=== PATIENT | male | born 1955 | race Two or more races ===

== ENCOUNTER 2016-12-02 07:33 | Day surgery (SDC) | payer BC ==
[~2016-12-02 07:33] MED LIST: Acetaminophen TAB* 325 MG PO PRN; Buffered Lidocaine 1% SYR 3ML* 3 ML/SYR SYRINGE INTRADERM ONE; Cyclopentolate 1% OPTH.SOL* 2 ML BTL ONE; Flurbiprofen 0.03% OPTH.SOL* 2.5 ML BTL ONE; Lidocaine 1% MPF* 2 ML VIAL ONE; Neomycin/Polymy/Dex OPHTH.OIN* 3.5 GM ONE; Phenylephrine 2.5% OPTH.SOL* 2 ML BTL ONE; Povidone Iodine 5% OPTH* 30 ML BTL ONE; Tetracaine 0.5% OPTH.SOL 4 ML* 1 DROP BTL ONE; acetaZOLAMIDE TAB* 250 MG ONE
[2016-12-02] MEDS ORDERED: Midazolam* 1 MG/ML 2 ML VIAL (2 MG) ONE (08:28)
[2016-12-02] MEDS ORDERED: fentaNYL* 50 MCG/ML 2 ML VIAL (100 MCG VIAL) ONE (08:28)
[2016-12-02 10:12] VITALS: BP 102/68
--- NOTE | 2016-12-02 20:16 | OP ---
DATE OF OPERATION: 12/02/16 - [facility] DATE OF : 57 SURGEON: Toan Lee MD. ANESTHESIOLOGIST: Deuce Hill MD ANESTHESIA: Monitored anesthesia care. PRE-OP DIAGNOSIS: Cataract of the right eye. POST-OP DIAGNOSIS: Cataract of the right eye. OPERATIVE PROCEDURE: Cataract surgery of the right eye. IMPLANTS: SN60WF 20.5 diopter lens to the right eye. COMPLICATIONS: None. DESCRIPTION OF PROCEDURE: The patient was given phenylephrine 2.5% and cyclopentolate 1% eye drops to the operative eye in the preoperative area. The patient was brought to the operating room, where a time-out was taken to identify the correct patient, site and side of the surgery. The patient's right eye was prepped and draped in the usual sterile fashion with 5% Betadine. A second time- out was taken to verify the correct patient, site and side of surgery and correct lens selection. A lid speculum was placed to the right eye. A 1-mm paracentesis blade was used to make a clear corneal incision in the superotemporal position. Preservative-free 1% lidocaine was injected into the anterior chamber. DuoVisc was then injected into the anterior chamber. A 2.75-mm keratome blade was used to make a triplanar incision at the inferotemporal position. A cystotome was used to initiate a capsulorrhexis, which was completed with Utrata forceps in a continuous and curvilinear manner. Hydrodissection of the lens was then performed with BSS on a cannula. The lens could be spun in the capsular bag. The phacoemulsification handpiece was then used with a lshbbg-xbu-ndligid technique to remove the nucleus in its entirety with 6.03 CDE. The I/A handpiece was then used to remove the residual cortical lens material. DuoVisc was then injected to inflate the capsular bag. The planned SN60WF 20.5 diopter lens was then injected into the capsular bag. The residual DuoVisc was then removed from the eye with the I/A handpiece. The corneal incisions were then hydrated and no leaks occurred at physiologic pressure around 20 mmHg per palpation. The lid speculum was then removed and drapes removed. Maxitrol ointment was then placed to the surface of the operative eye. An adhesive patch and shield were then placed on the operative eye. The patient was taken to the postoperative area in stable condition. [id number]/[facility] #: [id number] RUBEN
== END 2016-12-02 10:23 | disposition home or self-care (01) ==
LOC: OREAST 07:33
PROVIDERS: ATTEND Student in an Organized Health Care Education/Training Program
DX: H25.11 Age-related nuclear cataract, right eye (principal); H43.813 Vitreous degeneration, bilateral
CPT/HCPCS: A9270-GY; J2250; J3010; V2632

== ENCOUNTER → 2016-12-09 07:07 | Day surgery (SDC) | payer BC ==
[~2016-12-09 07:07] MED LIST changes: -Cyclopentolate 1% OPTH.SOL* 2 ML BTL ONE; -Flurbiprofen 0.03% OPTH.SOL* 2.5 ML BTL ONE; -Lidocaine 1% MPF* 2 ML VIAL ONE; +Midazolam* 1 MG/ML 2 ML VIAL (2 MG) ONE; -Neomycin/Polymy/Dex OPHTH.OIN* 3.5 GM ONE; -Phenylephrine 2.5% OPTH.SOL* 2 ML BTL ONE; -Povidone Iodine 5% OPTH* 30 ML BTL ONE; -Tetracaine 0.5% OPTH.SOL 4 ML* 1 DROP BTL ONE; -acetaZOLAMIDE TAB* 250 MG ONE; +fentaNYL* 50 MCG/ML 2 ML VIAL (100 MCG VIAL) ONE
[2016-12-09 09:15] VITALS: BP 102/63
--- NOTE | 2016-12-10 01:01 | OP ---
DATE OF OPERATION: 12/09/16 - [facility] DATE OF : 57 SURGEON: Toan Lee MD. ANESTHESIOLOGIST: Deuce Hill MD ANESTHESIA: Monitored anesthesia care. PRE-OP DIAGNOSIS: Cataract of the left eye. POST-OP DIAGNOSIS: Cataract of the left eye. PROCEDURE PERFORMED: Cataract extraction of the left eye. IMPLANTS: AU00T0 20.5 diopter lens to the left eye. COMPLICATIONS: None. DESCRIPTION OF PROCEDURE: The patient was given phenylephrine 2.5% and cyclopentolate 1% eye drops to the operative eye in the preoperative area. The patient was brought to the operative room, where a time-out was taken to identify the correct patient, site and side of the surgery. The patient's left eye was prepped and draped in the usual sterile fashion with 5% Betadine. A second time-out was taken to verify the correct patient, site and side of the surgery and correct lens selection. A lid speculum was placed to the left eye. A 1- mm paracentesis blade was used to make a clear corneal incision in the inferotemporal position. Preservative-free 1% lidocaine was injected into the anterior chamber. DuoVisc was then injected into the anterior chamber. A 2.75 mm keratome blade was used to make a triplanar incision at the superotemporal position. A cystotome was used to initiate a capsulorrhexis, which was completed with Utrata forceps in a continuous and curvilinear manner. Hydrodissection of the lens was then performed with BSS on a cannula. The lens could be spun in the capsular bag. The phacoemulsification handpiece was then used with a divide and conquer technique to remove the nucleus in its entirety with 6.24 CDE. The I/A handpiece then used to remove the residual cortical lens material. DuoVisc was then injected to inflate the capsular bag. The planned AU00T0 20.5 diopter lens was then injected into the capsular bag. The residual DuoVisc was then removed from the eye with the I/A hand-piece. The corneal incisions were then hydrated and no leaks occurred at physiologic pressure around 20 mmHg per palpation. The lid speculum was then removed and drapes removed. Maxitrol ointment was then placed into the surface of the operative eye. An adhesive patch and shield were then placed on the operative eye. The patient was taken to the postoperative area in stable condition. [id number]/[facility] #: [id number] MTDD
== END | disposition home or self-care (01) ==
LOC: OREAST 07:07
PROVIDERS: ATTEND Student in an Organized Health Care Education/Training Program
DX: H25.12 Age-related nuclear cataract, left eye (principal); H43.813 Vitreous degeneration, bilateral; J45.909 Unspecified asthma, uncomplicated
CPT/HCPCS: J2250; J3010; V2632

== ENCOUNTER 2017-12-30 19:42 | Emergency (ER) | payer BC ==
[2017-12-30] MEDS ORDERED: Meclizine TAB* 12.5 MG PO ONE (20:34)
[2017-12-30 21:01] LABS: ABS Basophils 0 10^3/ul (0-0.2); ABS Eosinophils 0.3 10^3/ul (0-0.6); ABS Lymphocytes 1.4 10^3/ul (1.0-4.8); ABS Monocytes 0.6 10^3/ul (0-0.8); ABS Neutrophils 4.9 10^3/ul (1.5-7.7); ABS Nucleated RBC 0 10^3/ul; Hematocrit 46 % (42-52); Hemoglobin 15.5 g/dl (14.0-18.0); Lymphocyte % 19.4 % (25-47); Mean Corpuscular HGB Conc 34 g/dl (31-36); Mean Corpuscular Hemoglobin 30 pg (27-31); Mean Corpuscular Volume 89 fL (80-94); Mean Platelet Volume 8 um3 (7.4-10.4); Nucleated Red Blood Cells % 0; Platelet Count 248 10^3/ul (150-450); Red Blood Count 5.15 10^6/ul (4.0-5.4); Red Cell Distribution Width 13 % (10.5-15); White Blood Count 7.3 10^3/ul (3.5-10.8)
--- NOTE | 2017-12-30 21:08 | RAD ---
HISTORY: Dizziness COMPARISONS: None TECHNIQUE: Multiple contiguous axial CT scans were obtained of the head without intravenous contrast. FINDINGS: HEMORRHAGE/INFARCT: There is no hemorrhage or acute infarct. MASSES/SHIFT: There is no mass or shift. EXTRA-AXIAL SPACES: There are no extra-axial fluid collections. SULCI AND VENTRICLES: The sulci and ventricles are normal in size and position for the patient's stated age. CEREBRUM: There are no focal parenchymal abnormalities. BRAINSTEM: There are no focal parenchymal abnormalities. CEREBELLUM: There are no focal parenchymal abnormalities. VESSELS: The vessels are grossly normal. PARANASAL SINUSES: The paranasal sinuses are clear. ORBITS: The orbits are unremarkable. BONES AND SOFT TISSUE: No bone or soft tissue abnormalities are noted. OTHER: None IMPRESSION: NO ACUTE INTRACRANIAL PATHOLOGY.
[2017-12-30 21:10] LABS: INR 0.98 (0.77-1.02)
[2017-12-30 21:20] LABS: EGFR Non-African American 107.5 (>60)
--- NOTE | 2017-12-30 22:31 | ED ---
Eddie Denis Thomas, scribed for Alize Madsen MD on 12/30/17 at 2036 . Complex/Multi-Sys Presentation - HPI Summary HPI Summary: The patient is a 62 year old male complaining of chest pain and dizziness that began earlier today when he was at work. The patient decided to return home from work, but the chest pain and dizziness continued. The patient took an antianxiety pill prior to arrival in an attempt to relieve the pain, but this did not relieve the pain. The patient reports that for the last month, he has had episodes of chest pain and dizziness that are short in duration. He does not feel dizzy in the emergency department. The patient denies feeling feverish. He recently had an outpatient stress test, and there are concerns that the patient did not follow up. - History Of Current Complaint Chief Complaint: EDChestPainROMI Time Seen by Provider: 12/30/17 19:54 Hx Obtained From: Patient Onset/Duration: Lasting Hours, Still Present Timing: Constant Severity Currently: Moderate Severity Initially: Moderate Location: Pain At: - chest Alleviating Factor(s): None (antianxiety pill did not relieve) Associated Signs And Symptoms: Positive: Other - CP, dizziness; NEGATIVE: feverish - Allergies/Home Medications Allergies/Adverse Reactions: Allergies Allergy/AdvReac Type Severity Reaction Status Date / Time No Known Allergies Allergy Verified 12/09/16 07:18 Home Medications: Home Medications Aspirin EC Low Dose* [Ecotrin EC Low Dose 81 MG*] 81 mg PO DAILY 12/30/17 [ History Confirmed 12/30/17] Magnesium [Magnesium Elemental] 30 mg PO EVERY OTHER DAY 12/30/17 [History Confirmed 12/30/17] Metoprolol Tartrate TAB* [Lopressor TAB*] 12.5 mg PO BID 12/30/17 [History Confirmed 12/30/17] Multivitamins/Minerals TAB* [Theragran/minerals TAB*] 1 tab PO DAILY 12/30/17 [ History Confirmed 12/30/17] PMH/Surg Hx/FS Hx/Imm Hx Endocrine/Hematology History: Denies: Hx Diabetes Cardiovascular History: Denies: Hx Hypertension Respiratory History: Reports: Hx Asthma - ROUTINE MEDICATION FOR, Other Respiratory Problems/Disorders - WALKING PNEUMONIA 5-6 MONTHS AGO GI History: Reports: Hx Gastroesophageal Reflux Disease - PRN OMEPRAZOLE FOR, Other GI Disorders - ANAL STENOSIS History: Reports: Hx Kidney Stones - HX OF IN THE PAST Denies: Hx Dialysis, Hx Renal Disease Sensory History: Reports: Hx Cataracts - BILATERAL Denies: Hx Hearing Aid Comment Only: Hx Contacts or Glasses - GLASSES Opthamlomology History: Reports: Hx Cataracts - BILATERAL Comment Only: Hx Contacts or Glasses - GLASSES Psychiatric History: Reports: Hx Anxiety - AFTER , NO PROBLEMS RECENTLY - Surgical History Surgery Procedure, Year, and Place: Galbladder removal 2001. COLONOSCOPY 2008 Hx Anesthesia Reactions: No Infectious Disease History: No Infectious Disease History: Denies: Traveled Outside the [place] in Last 30 Days - Family History Known Family History: Positive: Other - Cataracts - Social History Alcohol Use: None Substance Use Type: Reports: None Smoking Status (MU): Never Smoked Tobacco Review of Systems Negative: Fever Positive: Chest Pain Neurological: Other - Dizziness All Other Systems Reviewed And Are Negative: Yes Physical Exam - Summary Physical Exam Summary: VITAL SIGNS: Reviewed. GENERAL: Patient is a well-developed and nourished male who is lying comfortable in the stretcher. Patient is not in any acute respiratory distress. HEAD AND FACE: No signs of trauma. No ecchymosis, hematomas or skull depressions. No sinus tenderness. EYES: PERRLA, EOMI x 2, No injected conjunctiva, no nystagmus. EARS: Hearing grossly intact. Ear canals and tympanic membranes are within normal limits. MOUTH: Oropharynx within normal limits. NECK: Supple, trachea is midline, no adenopathy, no JVD, no carotid bruit, no c- spine tenderness, neck with full ROM. CHEST: Symmetric, no tenderness at palpation LUNGS: Clear to auscultation bilaterally. No wheezing or crackles. CVS: Regular rate and rhythm, S1 and S2 present, no murmurs or gallops appreciated. ABDOMEN: Soft, non-tender. No signs of distention. No rebound no guarding, and no masses palpated. Bowel sounds are normal. EXTREMITIES: FROM in all major joints, no edema, no cyanosis or clubbing. NEURO: Alert and oriented x 3. No acute neurological deficits. Speech is normal and follows commands. No dysmetria. Finger-nose is intact. No nystagmus. He has good movement. SKIN: Dry and warm Triage Information Reviewed: Yes Vital Signs On Initial Exam: Initial Vitals Temp Pulse Resp BP Pulse Ox 98.4 F 57 13 130/76 98 12/30/17 19:49 12/30/17 19:49 12/30/17 19:49 12/30/17 19:49 12/30/17 19:49 Vital Signs Reviewed: Yes Diagnostics - Vital Signs Vital Signs Temp Pulse Resp BP Pulse Ox 12/30/17 19:50 59 9 130/76 99 12/30/17 19:49 98.4 F 57 13 130/76 98 - Laboratory Result Diagrams: 12/30/17 20:45 12/30/17 20:45 Lab Statement: Any lab studies that have been ordered have been reviewed, and results considered in the medical decision making process. - CT CT Brain CT Interpretation: No Acute Changes - No acute intacranial pathology. Dr. Madsen has reviewed this report. CT Interpretation Completed By: Radiologist - EKG 19:51 Cardiac Rate: Bradycardia EKG Rhythm: Sinus Bradycardia - at 57 BPM EKG Interpretation: Nonspecific T wave changes in inferior leads. Re-Evaluation - Re-Evaluation First Eval Re-Evaluation Time: 22:16 Comment: Results discussed. Patient will be discharged. Complex Multi-Symp Course/Dx Assessment/Plan: The patient is a 62 year old male complaining of chest pain and dizziness that began earlier today when he was at work. In the ED course, the patient was given meclizine. Bloodwork was obtained. EKG was obtained. CT Brain shows no acute intracranial pathology. The patient is diagnosed with benign positional vertigo. The patient is instructed to follow up with primary care. - Diagnoses Provider Diagnoses: Benign positional vertigo Discharge - Sign-Out/Discharge Documenting (check all that apply): Discharge - Discharge Plan Condition: Stable Disposition: HOME Patient Education Materials: Benign Paroxysmal Positional Vertigo (ED) Referrals: Ezra Madrigal MD [Primary Care Provider] - 3 Days Additional Instructions: Follow up with your primary care physician in three days. Return to the emergency department for any new or worsening symptoms. The documentation as recorded by the Eddie steve Thomas accurately reflects the service I personally performed and the decisions made by , Alize Madsen MD.
[2017-12-30 22:55] VITALS: BP 136/71
== END 2017-12-30 22:57 | disposition home or self-care (01) ==
LOC: ED 19:42
DX: H81.10 Benign paroxysmal vertigo, unspecified ear (principal); R00.1 Bradycardia, unspecified; R07.89 Other chest pain; J45.909 Unspecified asthma, uncomplicated; K21.9 Gastro-esophageal reflux disease without esophagitis; F41.9 Anxiety disorder, unspecified; Z87.442 Personal history of urinary calculi
CPT/HCPCS: 36415; 70450; 80053; 84484; 85025; 85610; 85730; 93005; 99283; A9270-GY

== ENCOUNTER → 2018-01-05 08:16 | Day surgery (SDC) | payer BC ==
[~2018-01-05 08:16] MED LIST changes: -Acetaminophen TAB* 325 MG PO PRN; +Aspirin 81 mg CHEW TAB* 81 MG TAB.CHEW ONE; -Buffered Lidocaine 1% SYR 3ML* 3 ML/SYR SYRINGE INTRADERM ONE; +Diazepam TAB(*) 5 MG ONE; +Heparin 2 UNITS/ML IVPREMIX* 2,000 ML IV ONE; +Heparin(*) 1000 UNIT/ML 10 ML VIAL CATH LAB IV ONE; +Iohexol 350 (CONTRAST) 200 ML MDV IV ONE; +Lidocaine 1% INJ* 10 MG/ML 30 ML SDV ONE; +Midazolam* 1 MG/ML 10 ML VIAL (10 MG) ONE; -Midazolam* 1 MG/ML 2 ML VIAL (2 MG) ONE; +NS 0.9% 1000 ML* 1,000 ML IV SCH; +VERAPAMIL 2.5 MG/ML 2 ML VIAL ** 5 mg/2 ml ONE; +diPHENhydraMINE PO* 25 MG ONE; +nitroGLYCERIN DRIP* 25,000 MCG/250 ML BTL ONE
--- NOTE | 2018-01-06 02:39 | CATH ---
CC: Dr. Ezra Madrigal; Rodrick Roajs DO, [facility] * CARDIAC CATHETERIZATION REPORT: DATE OF PROCEDURE: 01/05/18 - [facility] CATH REASON FOR STRESS TEST: The patient with continued recurrence of chest discomfort with abnormal stress test by EKG, normal by imaging, now for definitive assessment to rule out the presence of coronary artery disease. PROCEDURE: Left heart catheterization, coronary arteriography, left ventriculography performed via the right radial artery. DESCRIPTION OF PROCEDURE: The patient was interviewed and examined in the holding area where the risks and benefits were explained. The right radial artery was visualized under ultrasound for size and was found to be inacceptable as an approach. The risks and benefits were explained. He understood them and wished to proceed. He was brought to the cardiovascular laboratory where the procedure was carried out after a formal time-out. Sheath utilized: A 6-Emirati glide sheath. Diagnostic catheters: A 5-Emirati TIG 4 curve catheter as well as a FL3.5 curve left Yan catheter. Left heart catheter was a 5-Emirati TIG Performa radial artery. The exchange wire was exchange length Godinez curved guidewire. Medications given included the radial artery solution of 3000 units of heparin, 300 mcg of nitroglycerin and 3 mg of verapamil. The patient had received 5 mg of Valium and 25 mg of Benadryl prior to the procedure. The patient also received aspirin therapy 81 mg. Laboratory results revealed hemoglobin and hematocrit of 15.5 and 46, platelet count of 248,000. BUN and creatinine of 13 and 0.7 with a potassium at 3.8. Closure device utilized was a Vasc band for compression hemostasis with a reverse Barbeau assessed at the end of the case as a level A. RESULTS: HEMODYNAMIC DATA: Left heart catheterization - central aortic pressure recorded at 132/72 with a mean at 97. Left ventricular pressure 131 over the left ventricle end- diastolic pressure 27. LEFT VENTRICULOGRAPHY: Performed in the OMALLEY projection revealed symmetrical left ventricular contractility with an overall post PVC ejection fraction in excess of 65% to 70% . There was no significant mitral regurgitation. CORONARY ARTERIOGRAPHY: A. Left Coronary Artery: 1. Left main - widely patent. 2. Left anterior descending artery - the left anterior descending artery had very mild 15% to 20% narrowing in its proximal portion before the first diagonal branch. The rest of the artery supplied a second moderate size diagonal branch. The left anterior descending artery extended to the apical region, but now well on to the distal inferior wall. 3. Circumflex artery - a nondominant vessel supplying a small caliber trifurcated marginal branch. This was followed by a very thin first short obtuse marginal branch followed by a bifurcating mid obtuse marginal branch. No significant stenosis was seen throughout the vessel. B. Right coronary artery - a dominant vessel supplying the PDA and multiple posterior left ventricular branches. There was no significant disease seen throughout the course of the vessel. OVERALL ASSESSMENT: No evidence of significant coronary artery disease identified. Of note, there was increased left ventricular end-diastolic pressure suggesting the presence of decreased left ventricular diastolic compliance. This information was given to Rodrick Rojas DO, who is the patient's primary swage toolsetter for further usage in his management. [id number]/[facility] #: [id number] MTDD
== END | disposition home or self-care (01) ==
LOC: CHICATH 08:16
PROVIDERS: ATTEND Internal Medicine Cardiovascular Disease
DX: I20.8 Other forms of angina pectoris (principal); R94.39 Abnormal result of other cardiovascular function study; J45.909 Unspecified asthma, uncomplicated; K21.9 Gastro-esophageal reflux disease without esophagitis; R06.02 Shortness of breath
CPT/HCPCS: 36415; 76937; 84132; 93458; A9270-GY; J1644; J2250; J3010